=== PATIENT | female | born 1965 | race Caucasian/White ===

== ENCOUNTER 2023-03-30 15:12 | Observation (INO) | payer OTHER, SELFPAY ==
[2023-03-30] VITALS (11 sets, daily range): BP systolic 113–162; BP diastolic 67–85; PULSE 74–102; RESP 12–16; TEMP 36.4–37.3; O2SAT 96–100; BMI 21.2; BMI 21.5
--- NOTE | 2023-03-30 15:43 | EKG12_ITS ---
Test Reason : POSS STROKE Blood Pressure : / mmHG Vent. Rate : 097 BPM Atrial Rate : 097 BPM P-R Int : 160 ms QRS Dur : 080 ms QT Int : 368 ms P-R-T Axes : 072 087 069 degrees QTc Int : 467 ms Normal sinus rhythm Normal ECG Confirmed by KVNG LIU ([id number]), editorial cartoonist JAS GARCIA ([id number]) on 04/02/2023 8:20:36 AM Referred By: Confirmed By:KVNG LIU
--- NOTE | 2023-03-30 15:43 | CT_ITS ---
We are attempting to reach an attending provider to discuss findings. An addendum with communication details will be sent when the communication is complete. EXAM: CT ANGIOGRAPHY HEAD AND NECK WITH INTRAVENOUS CONTRAST CLINICAL INDICATION: Neuro deficit, acute, stroke suspected: ataxia L TECHNIQUE: [place] of [place]/head and neck CT angiography protocol performed with intravenous contrast. This CT exam was performed using one or more of the following dose reduction techniques: automated exposure control, adjustment of the mA and/or kV according to patient size, and/or use of iterative reconstruction technique. MIP reconstructed images were created and reviewed. CONTRAST: IV 100mL [id number] COMPARISON: No relevant prior studies available. FINDINGS: HEAD: RIGHT ANTERIOR CEREBRAL ARTERY: Unremarkable. No significant stenosis at the visualized segments. Anterior communicating artery is present. No aneurysm. RIGHT MIDDLE CEREBRAL ARTERY: Unremarkable. No significant stenosis at the visualized segments. No aneurysm. RIGHT POSTERIOR CEREBRAL ARTERY: Unremarkable. No occlusion or significant stenosis. No aneurysm. RIGHT INTRACRANIAL INTERNAL CAROTID ARTERY: Unremarkable. No significant stenosis. No dissection or occlusion. RIGHT INTRACRANIAL VERTEBRAL ARTERY: Unremarkable. No significant stenosis. No dissection or occlusion. LEFT ANTERIOR CEREBRAL ARTERY: Unremarkable. No significant stenosis at the visualized segments. No aneurysm. LEFT MIDDLE CEREBRAL ARTERY: Unremarkable. No significant stenosis at the visualized segments. No aneurysm. LEFT POSTERIOR CEREBRAL ARTERY: Unremarkable. No occlusion or significant stenosis. No aneurysm. LEFT INTRACRANIAL INTERNAL CAROTID ARTERY: Unremarkable. No significant stenosis. No dissection or occlusion. LEFT INTRACRANIAL VERTEBRAL ARTERY: Unremarkable. No significant stenosis. No dissection or occlusion. BASILAR ARTERY: Unremarkable. No significant stenosis. No aneurysm. OTHER VASCULATURE: No vascular malformation. NECK: RIGHT COMMON CAROTID ARTERY: Unremarkable. No significant stenosis. No dissection or occlusion. RIGHT EXTRACRANIAL INTERNAL CAROTID ARTERY: Unremarkable. No significant stenosis. No dissection or occlusion. RIGHT EXTERNAL CAROTID ARTERY: Unremarkable. No occlusion. RIGHT EXTRACRANIAL VERTEBRAL ARTERY: Unremarkable. No significant stenosis. No dissection or occlusion. LEFT COMMON CAROTID ARTERY: Unremarkable. No significant stenosis. No dissection or occlusion. LEFT EXTRACRANIAL INTERNAL CAROTID ARTERY: Unremarkable. No significant stenosis. No dissection or occlusion. LEFT EXTERNAL CAROTID ARTERY: Unremarkable. No occlusion. LEFT EXTRACRANIAL VERTEBRAL ARTERY: Unremarkable. No significant stenosis. No dissection or occlusion. BRACHIOCEPHALIC AND SUBCLAVIAN ARTERIES: Unremarkable as visualized. No occlusion or significant stenosis. LUNG APICES: Unremarkable as visualized. HEAD and NECK: BONES/JOINTS: Unremarkable. No discrete lytic or blastic abnormalities. SOFT TISSUES: Unremarkable. CAROTID STENOSIS REFERENCE USING NASCET CRITERIA: % ICA stenosis = (1 - narrowest ICA diameter/diameter of distal cervical ICA) x 100. Mild - <50% stenosis. Moderate - 50-69% stenosis. Severe - 70-94% stenosis. Near occlusion - 95-99% stenosis. Occluded - 100% stenosis. CT/STROKE CTA Head AND Neck W/Con IMPRESSION: Negative CTA carotid and CTA brain. Electronically Signed: Khurram Peña MD at 16:22 EDT ,
--- NOTE | 2023-03-30 15:48 | ED.VIS.STROK ---
HPI History of Present Illness Chief Complaint: Dizziness Informant: patient Narrative Narrative: Patient was sitting at lunch 3 hours prior to arrival and started suddenly feeling sensation of dizziness/movement in her head. It was relatively mild but she knows when it started. When she got up to walk, she noticed that she was unable to well, and was off balance feeling like she was on a boat. She has never had this before. She denies any other associated symptoms except for some mild nausea. No headache, tinnitus, changes in hearing, earache, recent URI, or focal numbness/weakness anywhere. 1 week ago she arrived home in [place] from a cruise to [place] and [place], and had no issues while she was there. She flew here 2 days ago from [place]. She has had no symptoms of disequilibrium or ataxia or motion sickness in the last week since she has been home. She states she did notice when she got home that she had a soreness in her left low posterior rib cage that is worse with movement, she does not recall an injury, she has had no rash, and there is no pleuritic symptoms, dyspnea, trouble urinating, or any other painful areas. She is active, healthy, takes no medications except for maintenance Singulair for her relatively stable asthma. [facility] Medical History (Updated 03/30/23 @ 16:[address] Seng Maldonado MD) Asthma Home Medications dextroamphetamine-amphetamine ER 15 mg 24hr capsule,extend release 15 mg PO .QAM 03/30/23 [History Last Taken Unknown] montelukast 10 mg tablet (Singulair) 10 mg PO DAILY 03/30/23 [History Last Taken Unknown] Allergy/AdvReac Type Severity Reaction Status Date / Time No Known Allergies Allergy Verified 03/30/23 15:16 Social History (Updated 03/30/23 @ 15:[address] Seng Maldonado MD) Smoking Status: Never smoker alcohol intake: current alcohol intake frequency: a few times a week substance use type: does not use ROS ROS ED Constitutional Constitutional ED: Denies chills or fever(s) Eyes Eyes: Denies change in vision or diplopia ENT ENT ED: Denies rhinorrhea or sore throat Cardiovascular Cardiovascular: Denies chest pain or palpitations Respiratory/Chest Respiratory/Chest: Denies cough or dyspnea Gastrointestinal Gastrointestinal: Reports nausea; Denies abdominal pain, diarrhea or vomiting Genitourinary Genitourinary ED: Denies dysuria or hematuria Musculoskeletal Musculoskeletal: Denies back pain or neck pain Integumentary Denies abscess or rash Neurologic Neurologic: Reports as per HPI, abnormal gait and disequilibrium; Denies headache(s), paresthesias or weakness Psychiatric Psychiatric: Denies anxiety or suicidal thoughts EXAM Physical Exam Const Vital Signs: 03/30/23 15:14 03/30/23 15:23 03/30/23 15:59 Temperature 98.0 F Temperature Source Temporal Pulse Rate 94 Respiratory Rate 16 Respiratory Effort Normal Respiratory Pattern Normal Blood Pressure 132/77 H Blood Pressure Mean 95 Pulse Ox 98 Oxygen Delivery Method Room Air Room Air 03/30/23 16:01 03/30/23 15:43 03/30/23 16:13 Temperature 98.2 F 98.4 F 98.2 F Temperature Source Oral Oral Oral Pulse Rate 100 99 102 H Respiratory Rate 16 12 13 Respiratory Effort Respiratory Pattern Blood Pressure 159/82 H 113/85 H 113/85 H Blood Pressure Mean 107 94 94 Pulse Ox 98 97 100 Oxygen Delivery Method Room Air Room Air Room Air 03/30/23 16:26 Temperature 98.4 F Temperature Source Oral Pulse Rate 101 H Respiratory Rate 16 Respiratory Effort Respiratory Pattern Blood Pressure 131/67 H Blood Pressure Mean 88 Pulse Ox 99 Oxygen Delivery Method Room Air Positive well nourished and well developed General Appearance ED: well developed and NAD HEENT Reports TM's clear and moist mucous membranes normocephalic and atraumatic Tympanic Membrane ED: Yes TM's clear Eyes PERRL and EOMs intact bilaterally Neck full ROM, no lymphadenopathy and supple Resp normal respiratory effort and clear to auscultation bilaterally Cardio regular rate, regular rhythm and no murmurs GI non-tender and non-distended Auscultation: normoactive bowel sounds Palpation: soft Back/Spine no CVA tenderness Back/Spine Narrative: Tender left lower posterior lateral ribs without rash, crepitance, or CVA tenderness General Back: other FROM Extremity normal to inspection General Extremety ED: Negative for edema, pulses abnormal or tenderness General Extremity: Negative for edema or pulses abnormal Neuro oriented x3, CN's II-XII intact bilaterally and no sensory deficits noted Neuro Narrative: Horizontal nystagmus bilaterally, maybe worse to the right, no vertical or rotatory nystagmus. Ataxic with left upper and left lower extremities, not with the right. [place] bilaterally similarly reproduces disequilibrium without nystagmus. Normal speech and comprehension. Sensorium / Orientation: awake and alert Motor Exam: strength 5/5 throughout Psych mental status grossly normal Skin no rashes or lesions noted and no wounds NIHSS NIHSS Initial: 1a Level of Consciousness: 0 1b LOC Questions (Score 2 if aphasic/stupor): 0 1c LOC Commands (Only score 1st attempt): 0 2 Best Gaze (If aphasic, use reflexive mvmts.): 0 3 Visual: 0 4 Facial Palsy: 0 5 Motor Arm Right (UN = amputation/fusion): 0 5 Motor Arm Left: 0 6 Motor Leg Right: 0 6 Motor Leg Left: 0 7 Limb ataxia (Only + if out of proportion): 2 8 Sensory (Aphasia/stupor=0 or 1, coma=2): 0 9 Best Language: 0 10 Dysarthria (mute, coma=2, intubated=UN): 0 11 Extinction and Inattention (only scored if +): 0 Total Score: 2 MDM MDM MDM Narrative Medical decision making narrative: After my exam, upon determining the patient has true ataxia in her left upper and lower extremities, I am concerned about central etiologies, and a stroke alert was immediately called. Discussed throughout at length with patient and stroke neurologist who evaluated the patient in real-time on telemedicine, agrees this is central until proven otherwise and does not recommend thrombolytics given nondisabling deficits and she is at the tail end of the 4-hour window. Patient is in agreement I am in agreement as well. Patient amenable for admission for continued work-up. Lab Data Attestation: I reviewed the patient's lab results. Labs: Laboratory Results - last 24 hr 03/30/23 16:00 WBC 5.9 RBC 4.92 Hgb 14.2 Hct 44.1 MCV 89.6 MCH 28.9 MCHC 32.2 RDW Std Deviation 40.6 RDW Coeff of [place]et[place] 12.2 Plt Count 239 MPV 11.1 Immature Gran % (Auto) 0.200 Neut % (Auto) 52.0 Lymph % (Auto) 28.0 [place] % (Auto) 11.1 H Eos % (Auto) 7.8 H Baso % (Auto) 0.9 Absolute Neuts (auto) 3.1 Absolute Lymphs (auto) 1.64 Nucleated RBC % 0 PT 12.7 INR 1.0 APTT 32.1 Sodium 139 Potassium 3.7 Chloride 107 Carbon Dioxide 29.0 Anion Gap 3 L BUN 17 Creatinine 0.93 Estim Creat Clear Calc 68.52 Est GFR (MDRD) Af Amer 80 Est GFR (MDRD) Non-Af 66 BUN/Creatinine Ratio 18.2 Glucose 98 Calcium 8.9 Troponin I High Sens 4 Radiography Diagnostic Testing: Clinical Impression(s) from Imaging Studies Head/Neck CTA 03/30/23 15:43 IMPRESSION: Negative CTA carotid and CTA brain. Electronically Signed: Khurram Peña MD at 16:22 EDT , ADDENDUM: 03/30/23 1631 IMPRESSION: Negative CTA carotid and CTA brain. N.B. : The above Results were Read Back by Khurram Peña MD to Seng Maldonado MD, and understanding confirmed on 03/30/2023 16:24:08 (ET). Electronically Signed: Khurram Peña MD at 16:22 EDT , Brain CT 03/30/23 15:50 IMPRESSION: 1. No acute intracranial abnormality. 2. Aspects score 10. 3. Ethmoid, frontal and sphenoid sinusitis. Electronically Signed: Khurram Peña MD at 16:11 EDT , ADDENDUM: 03/30/23 1621 IMPRESSION: 1. No acute intracranial abnormality. 2. Aspects score 10. 3. Ethmoid, frontal and sphenoid sinusitis. N.B. : The above Results were Read Back by Khurram Peña MD to Seng Maldonado MD, and understanding confirmed on 03/30/2023 16:14:13 (ET). Electronically Signed: Khurram Peña MD at 16:11 EDT , Rhythm Strip Rhythm Strip: Sinus Rhythm Rate: 95 Ectopy: None EKG Initial EKG: Attestation: I personally reviewed and interpreted this EKG as follows: Interpretation: Sinus Rhythm and No Acute Injury Pattern Management Discussion w/another healthcare provider: Hospitalist, Winding Lathe Operator (Stroke neurology Dr. Jack) and Radiologist Stroke Documentation Questions Stroke Team Activated: Yes Was Patient considered for Endovascular Intervention?: No-CTA negative, determined not to be an endovascular candidate IV Thrombolytic Administered: No (nondisabling deficits) Critical Care Time Critical Care Time: Yes Critical care time (excluding procedures): 30-74 minutes (33 min), Including time spent:, Discussing w/Patient &/or Family/Senior Product Development Scientist, Discussing w/Consultants, Arranging Admission or Transfer and Performing Direct Patient Care at Bedside Discharge Plan Triage Chief Complaint: Dizziness ED Provider: Seng Maldonado Dx/Rx/DC Orders Clinical Impression: Acute cerebellar ataxia Prescriptions: No Action montelukast [Singulair] 10 mg tablet 10 mg PO DAILY dextroamphetamine-amphetamine 15 mg capsule,extended release 24hr 15 mg PO .QAM Patient Comments: TAKE ONE CAPSULE BY MOUTH EVERY MORNING Primary Care Provider: SIGIFREDO PEPPER Referrals: [facility] Doctor,Out of [Non-Staff] - Disposition Disposition: Acute Care Hospital [facility]
--- NOTE | 2023-03-30 15:50 | CT_ITS ---
We are attempting to reach an attending provider to discuss findings. An addendum with communication details will be sent when the communication is complete. EXAM: CT HEAD WITHOUT INTRAVENOUS CONTRAST CLINICAL INDICATION: Neuro deficit, acute, stroke suspected: ataxia L TECHNIQUE: Multiple axial images were obtained of the head without intravenous contrast. This CT exam was performed using one or more of the following dose reduction techniques: automated exposure control, adjustment of the mA and/or kV according to patient size, and/or use of iterative reconstruction technique. COMPARISON: No relevant prior studies available. FINDINGS: BRAIN AND EXTRA-AXIAL SPACES: Unremarkable. No intra- or extra-axial hemorrhage. No evidence of acute infarct. No intracranial mass or mass effect. There is preservation of the lou/white matter interface. Posterior fossa structures are unremarkable. Ventricles are appropriate for age. No hydrocephalus. Basal cisterns are patent. BONES/JOINTS: Unremarkable. No discrete lytic or blastic abnormalities. SINUSES: There is total opacification of multiple ethmoid air cells. There is also mucosal thickening of the frontal sinuses and sphenoid sinus. MASTOID AIR CELLS: Unremarkable. Clear. ORBITS: Visualized globes, extraocular muscles, optic nerves and retrobulbar fat appear unremarkable. CT/STROKE Brain/Head without Cont IMPRESSION: 1. No acute intracranial abnormality. 2. Aspects score 10. 3. Ethmoid, frontal and sphenoid sinusitis. Electronically Signed: Khurram Peña MD at 16:11 EDT ,
[2023-03-30 16:15] LABS: Absolute Lymphocyte Count 1.64 X10^3/uL (0.83-4.51); Absolute Neutrophil Count 3.1 X10^3/uL (2.0-7.7); Basophil# 0.05 X10^3/uL; Basophil% 0.9 % (0-1); Eosinophil# 0.46 X10^3/uL; Eosinophils% 7.8 % (0-5); Hematocrit 44.1 % (37-47); Hemoglobin 14.2 g/dL (12.0-15.0); Lymphocyte # 1.64 X10^3/ul (0.83-4.51); Mean Corp Hgb Conc 32.2 g/dL (32-36); Mean Corpuscular Hgb 28.9 pg (27.0-32.0); Mean Corpuscular Volume 89.6 fL (81-99); Mean Platelet Vol. 11.1 fl (6.2-12.0); Monocyte# 0.65 X10^3/uL; Monocyte% 11.1 % (0-10); NRBC Flagged by Analyzer 0 % (0-5); Neutrophil # 3.05 X10^3/uL (2.7-7.7); Platelet Count 239 K/mm3 (150-450); RBC Distribution Width CV 12.2 % (11.6-14.6); RBC Distribution Width SD 40.6 fl (35.1-43.9); Red Blood Count 4.92 M/mm3 (4.2-5.4); White Blood Count 5.9 K/mm3 (4.4-11.0)
--- NOTE | 2023-03-30 16:15 | NURSING ---
1545: Stroke alert called, IV started, labs drawn, placed on monitor, put on gown 1550: Pt out of ED to CT, Telestroke called 1605: Pt returned from CT, Blood sugar obtained, telestroke called again 1616: on telestroke called in with computer.
[2023-03-30 16:24] LABS: Prothrombin Time (Protime)PT. 12.7 SECONDS (11.7-14.9)
[2023-03-30 16:25] LABS: Partial Thromboplast Time 32.1 Seconds (24.1-36.2)
[2023-03-30 16:32] LABS: Anion Gap 3 (5-15); BUN 17 mg/dL (7-18); BUN/Creat Ratio 18.2 RATIO (10-20); Calcium,Total 8.9 mg/dL (8.5-10.1); Chloride 107 mmol/L (98-107); Creatinine, Serum 0.93 mg/dL (0.55-1.02); EST Glomerular Filtration Rate 66 mL/min (>60); Est Glom Filt Rate - Afr Amer 80 mL/min (>60); Estimated Creatinine Clearance 68.52 ml/min; Glucose 98 mg/dL (74-106); Potassium 3.7 mmol/L (3.5-5.1); Sodium Level 139 mmol/L (136-145); Troponin-I HS 4 pg/mL (3.0-54.0)
--- NOTE | 2023-03-30 16:49 | PCM.HP.STD ---
HPI - General General Date of Admission: 03/30/23 Date of Service: 03/30/23 Chief Complaint: Ataxia HPI Narrative BRUNA GUERIN is a 57-year-old female with history significant for asthma and ADHD who presented to [facility] ED on 03/30/2023 with dizziness. Patient seen at bedside, mother present. Patient sitting up comfortably in bed, conversing normally, in no acute distress. Patient lives in [place] and was here visiting her parents this weekend. She flew in on and is planning to fly home to [place] on this coming Saturday. States she is very healthy at baseline and has never had anything like this happen to her before. States she was sitting at lunch today and suddenly started to feel a sensation of dizziness and room spinning. She states it was relatively mild but when she got up to walk, she felt very off balance like she was on a boat. She had some mild nausea associated with this but otherwise had no other symptoms. She denies any recent infections. She denies any headaches, tinnitus, changes in hearing. Denies any focal numbness or weakness anywhere else in the body. Labs on admission were benign. CT brain and CTA head neck in the ED were nonacute. Chest x-ray was nonacute. [facility] Medical History (Updated 03/30/23 @ 19:[address] Zaid Shelton DO) Asthma Home Medications dextroamphetamine-amphetamine ER 15 mg 24hr capsule,extend release 15 mg PO .QAM 03/30/23 [History Last Taken 03/30/23] ibuprofen 200 mg tablet (Advil) 400 mg PO Q8H PRN pain 03/30/23 [History Last Taken 03/30/23] montelukast 10 mg tablet (Singulair) 10 mg PO DAILY 03/30/23 [History Last Taken 03/29/23] Allergy/AdvReac Type Severity Reaction Status Date / Time No Known Allergies Allergy Verified 03/30/23 15:16 Social History (Updated 03/30/23 @ 15:[address] Seng Maldonado MD) Smoking Status: Never smoker alcohol intake: current alcohol intake frequency: a few times a week substance use type: does not use ROS Constitutional Constitutional: Denies chills, fatigue, fever(s) or weakness Eyes Eyes: Denies blurry vision or change in vision ENT HEENT: Reports other; Denies ear pain, headache(s), hearing loss or sore throat Cardiovascular Cardiovascular: Denies chest pain or lightheadedness Respiratory/Chest Respiratory/Chest: Denies cough Gastrointestinal Gastrointestinal: Denies abdominal pain Genitourinary Genitourinary: Denies dysuria Neurologic Neurologic: Reports abnormal gait, disequilibrium and dizziness; Denies focal weakness, headache(s), numbness, syncope or tingling Vital Signs Vital Signs Vital Signs: 03/30/23 15:14 03/30/23 15:23 03/30/23 15:59 Temperature 98.0 F Temperature Source Temporal Pulse Rate 94 Respiratory Rate 16 Respiratory Effort Normal Respiratory Pattern Normal Blood Pressure 132/77 H Blood Pressure Mean 95 Pulse Ox 98 Oxygen Delivery Method Room Air Room Air 03/30/23 16:01 03/30/23 15:43 03/30/23 16:13 Temperature 98.2 F 98.4 F 98.2 F Temperature Source Oral Oral Oral Pulse Rate 100 99 102 H Respiratory Rate 16 12 13 Respiratory Effort Respiratory Pattern Blood Pressure 159/82 H 113/85 H 113/85 H Blood Pressure Mean 107 94 94 Pulse Ox 98 97 100 Oxygen Delivery Method Room Air Room Air Room Air 03/30/23 16:26 Temperature 98.4 F Temperature Source Oral Pulse Rate 101 H Respiratory Rate 16 Respiratory Effort Respiratory Pattern Blood Pressure 131/67 H Blood Pressure Mean 88 Pulse Ox 99 Oxygen Delivery Method Room Air Weight Weight: 63.503 kg Body Mass Index (BMI) 21.2 Physical Exam Const alert, oriented x3, no apparent distress, average body habitus, healthy appearing and well nourished Constitutional Narrative: Pleasant female sitting comfortably in bed, conversing normally, no acute distress. General Appearance: cooperative, comfortable, well kempt and well developed HEENT normocephalic, head/scalp atraumatic, hearing grossly normal bilaterally, nasal mucous membranes and turbinates normal and moist oral mucous membranes Eyes PERRL, EOMs intact bilaterally and conjunctivae normal Neck full ROM, no lymphadenopathy and supple Lymph Lymphatic: no lymphadenopathy noted Chest inspection of chest normal Resp normal respiratory effort, normal air movement, no use of accessory muscles and clear to auscultation bilaterally Cardio regular rate, regular rhythm, no murmurs and peripheral pulses 2+ throughout GI normal to inspection, nondistended, normoactive bowel sounds, soft to palpation, non-tender and non-distended Back/Spine normal ROM Extremity normal to inspection, full ROM and no pedal edema Skin no rashes or lesions noted Neuro moves all extremities and no focal motor deficits Neuro Narrative: Basic neuro exam completed while patient was in bed, no acute findings noted. Psych mental status grossly normal Results Lab / Micro Data 03/30/23 16:00 03/30/23 16:00 Labs: Laboratory Results - last 24 hr 03/30/23 16:00: WBC 5.9, RBC 4.92, Hgb 14.2, Hct 44.1, MCV 89.6, MCH 28.9, MCHC 32.2, RDW Std Deviation 40.6, RDW Coeff of [place] 12.2, Plt Count 239, MPV 11.1, Immature Gran % (Auto) 0.200, Neut % (Auto) 52.0, Lymph % (Auto) 28.0, [place] % (Auto) 11.1 H, Eos % (Auto) 7.8 H, Baso % (Auto) 0.9, Absolute Neuts (auto) 3.1, Absolute Lymphs (auto) 1.64, Nucleated RBC % 0, PT 12.7, INR 1.0, APTT 32.1, Sodium 139, Potassium 3.7, Chloride 107, Carbon Dioxide 29.0, Anion Gap 3 L, BUN 17, Creatinine 0.93, Estim Creat Clear Calc 68.52, Est GFR (MDRD) Af Amer 80, Est GFR (MDRD) Non-Af 66, BUN/Creatinine Ratio 18.2, Glucose 98, Calcium 8.9, Troponin I High Sens 4 Rhythm Strip Rhythm Strip: Sinus Rhythm Rate: 95 Ectopy: None Radiology Impression Head/Neck CTA 03/30/23 15:43 IMPRESSION: Negative CTA carotid and CTA brain. Electronically Signed: Khurram Peña MD at 16:22 EDT , ADDENDUM: 03/30/23 1631 IMPRESSION: Negative CTA carotid and CTA brain. N.B. : The above Results were Read Back by Khurram Peña MD to Seng Maldonado MD, and understanding confirmed on 03/30/2023 16:24:08 (ET). Electronically Signed: Khurram Peña MD at 16:22 EDT , Brain CT 03/30/23 15:50 IMPRESSION: 1. No acute intracranial abnormality. 2. Aspects score 10. 3. Ethmoid, frontal and sphenoid sinusitis. Electronically Signed: Khurram Peña MD at 16:11 EDT , ADDENDUM: 03/30/23 1621 IMPRESSION: 1. No acute intracranial abnormality. 2. Aspects score 10. 3. Ethmoid, frontal and sphenoid sinusitis. N.B. : The above Results were Read Back by Khurram Peña MD to Seng Maldonado MD, and understanding confirmed on 03/30/2023 16:14:13 (ET). Electronically Signed: Khurram Peña MD at 16:11 EDT , Assessment & Plan Assessment/Plan (1) Dizziness: PLAN: Plan Patient is a 57-year-old female with history significant for asthma and ADHD who presented to [facility] ED on 03/30/2023 with dizziness. 1. Dizziness Unclear etiology at this time. Seems less likely a CVA given normal CT imaging of head, and that patient stated that symptoms seem to be improving during her time in the ED without any intervention. Seems more likely vestibular in nature like BPPV. Less likely infectious related as she currently has no systemic symptoms and reports no recent infectious symptoms. Labs and imaging in the ED as noted above in the HPI. -We will complete CVA work-up with MRI brain and echo. Lipid panel, A1c and TSH ordered. PT/OT/case management also consulted. 2. Asthma ? Continue home montelukast. 3. ADHD ? Continue home Adderall. DVT prophylaxis: Ambulation CODE STATUS: Full code, verified Expected disposition: Home, 1 to 2 days Total clinical time spent by myself addressing the patient's medical issues, reviewing all the data, and collaborating with patient's care team: 55 minutes. Charges/Coding Visit Charges Inpatient E&M: 60862 Init Hosp L2
[2023-03-30 16:51] LABS: Bedside Glucose 82 mg/dL (74-106)
--- NOTE | 2023-03-30 16:54 | NURSING ---
Hospitalist in to see pt.
--- NOTE | 2023-03-30 17:20 | RAD_ITS ---
EXAM: XR CHEST, 1 VIEW CLINICAL INDICATION: Neuro deficit, acute, stroke suspected TECHNIQUE: Frontal view of the chest. COMPARISON: No relevant prior studies available. FINDINGS: LUNGS AND PLEURAL SPACES: Unremarkable. No consolidation or edema. No pneumothorax. No effusion. HEART: Unremarkable. Cardiac silhouette not enlarged. MEDIASTINUM: Central airways and mediastinal contour are unremarkable. BONES/JOINTS: Unremarkable. SOFT TISSUES: Unremarkable. RAD/Chest 1 View IMPRESSION: No radiographic evidence of acute cardiopulmonary disease. Electronically Signed: Khurram Peña MD at 18:00 EDT ,
[2023-03-30 18:44] LABS: Color, Urine Straw (Yellow); Glucose, Dipstick Normal (Normal); Ketone-Dipstick Negative (Negative); Leukocyte Esterase-Dipstick Negative /ul (Negative); Nitrite-Dipstick Negative (Negative); Occult Blood-Urine Negative /ul (Negative); Protein-Dipstick Negative (Negative); Urine Bilirubin Dipstick Negative (Negative); Urine Clarity Clear (Clear); Urine Urobilinogen Normal (Normal)
[2023-03-30 19:24] LABS: Amphetamine Urine VISTA NEGATIVE (<1000 ng/mL); Barbiturate Urine VISTA NEGATIVE (< 200 ng/mL); Benzodiazepine Urine VISTA NEGATIVE (< 200 ng/mL); Cocaine Urine VISTA NEGATIVE (< 300 ng/mL); Ecstacy Urine VISTA NEGATIVE (< 500 ng/mL); Methadone Urine VISTA NEGATIVE (< 300 ng/mL); PCP Urine VISTA NEGATIVE (< 25 ng/mL); THC Urine VISTA NEGATIVE (< 50 ng/mL); Vista UDS pH Range 8
[2023-03-30 20:07] LABS: Cholesterol 224 mg/dL (200); High Density Lipoprotein 73 mg/dL; Triglycerides 155 mg/dL; Very Low Density Lipoprotein 31 mg/dL (5-40)
[2023-03-31 03:24] VITALS: BP 108/73; PULSE 75; RESP 15; TEMP 36.9; O2SAT 97
[2023-03-31 07:12] VITALS: BP 98/62; PULSE 69; RESP 15; TEMP 36.2; O2SAT 97
--- NOTE | 2023-03-31 07:27 | MRI_ITS ---
STUDY: MRI BRAIN WITH AND WITHOUT CONTRAST REASON FOR EXAM: Female, 57 years old. Ataxia, unsteady gait, possible stroke TECHNIQUE: Standardized multiplanar fat and water weighted pulse sequences were obtained. IV CLARISCAN 13 ml was administered for the contrast portion of the examination. COMPARISON: CT March 30, 2023 FINDINGS: Normal size of the ventricles and extra-axial spaces for the patient''s age. Normal white matter tracts of the supratentorial brain. There is no evidence for recent intracranial ischemia or other cause of cytotoxic edema on diffusion weighted imaging (DWI). Normal T2* images of the brain without demonstrated susceptibility artifact. There is no demonstrated hemosiderin stain. Normal bilateral basal ganglia. Normal thalami. There is no extra-axial fluid accumulation. Normal flow voids within the major intracranial circulation suggesting patency by spin echo criteria. Normal venous enhancement. There is no enhancing intra-axial or extra-axial abnormality. Normal sella turcica, pituitary gland, infundibular stalk, optic chiasm and hypothalamus. Normal tectal plate and pineal gland. Normal midbrain, alejandra and medulla. Normal cerebellum. Normal basal cisterns. Normal bilateral temporal bones. Normal bilateral internal auditory canals. No demonstrated orbital abnormality, within the constraints of a routine brain study. There is moderate mucosal thickening of the visualized paranasal sinuses. Normal calvarium and skull base. Normal visualized soft tissue structures. Normal visualized upper cervical spine. MRI/Brain W/WO Contrast IMPRESSION: Normal unenhanced and enhanced MRI of the brain.. Sinusitis. Electronically Signed: Seng Del Cid MD at 10:52 EDT ,
[2023-03-31] MEDS: LORazepam 2 MG/ML Syringe 0.5 MG IV (07:51)
[2023-03-31 09:19] LABS: Hemoglobin A1c 5.1 % (3.8-5.6)
[2023-03-31] MEDS: Montelukast 10 MG Tablet PO (10:35)
--- NOTE | 2023-03-31 13:18 | PCM.DC ---
Discharge Instructions Diet Discharge Diet: No restrictions Activity Discharge Activity: Return to Normal Activity Dressing / Incision Call your doctor if you observe: Fever of 101 or Higher, Shortness of breath, Dizziness, Fainting spells, Swelling in the ankles, Chest pain and Increased palpitations (irregular heartbeat) Follow Up Care Test Results: Test results from this visit will be discussed in further detail at your follow-up appointment, if applicable. Discharge Plan Admission Admit Date/Time: 03/30/23 17:04 Attending Provider: Neo Berrios Primary Care Provider: SIGIFREDO PEPPER Consulting Providers: Zaid Shelton Instructions Additional Instructions / Restrictions: If your lower extremity ataxia gets worse recommend coming back to the hospital for completion of neurological work-up otherwise I would continue with plans to return to [place] tomorrow afternoon and follow-up with your PCP as an outpatient with outpatient neurology as well. I do recommend completion of stroke work-up with obtaining an echo. Discharge Orders/Prescriptions Prescriptions: New aspirin 81 mg capsule 81 mg PO DAILY Qty: 30 0RF atorvastatin [Lipitor] 40 mg tablet 40 mg PO QHS Qty: 30 0RF Continued montelukast [Singulair] 10 mg tablet 10 mg PO DAILY dextroamphetamine-amphetamine 15 mg capsule,extended release 24hr 15 mg PO .QAM Patient Comments: TAKE ONE CAPSULE BY MOUTH EVERY MORNING ibuprofen [Advil] 200 mg tablet 400 mg PO Q8H PRN (Reason: pain) Referrals / Follow Up: SIGIFREDO PEPPER [[facility]] [facility] Doctor,Out of [Non-Staff] - Disposition Disposition (needs filled in before D/C Order can be placed): Home, Self Care
--- NOTE | 2023-03-31 15:24 | PCM.DC.SUM ---
Providers Date of Admission: 03/30/23 Primary Care Physician: SIGIFREDO PEPPER Reason For Visit: ATAXIA Diagnosis Discharge Diagnosis (1) Dizziness: Status: Acute Code(s): R42 - Dizziness and giddiness Medications at Discharge Home Medications dextroamphetamine-amphetamine ER 15 mg 24hr capsule,extend release 15 mg PO .QAM 03/30/23 ibuprofen 200 mg tablet (Advil) 400 mg PO Q8H PRN pain 03/30/23 montelukast 10 mg tablet (Singulair) 10 mg PO DAILY 03/30/23 aspirin 81 mg capsule 81 mg PO DAILY #30 caps 03/31/23 atorvastatin 40 mg tablet (Lipitor) 40 mg PO QHS #30 tabs 03/31/23 Hospital Course Operations None Procedures None Summary of Care Provided Minutes Spent on Discharge: 42 Hospital Course: Per HPI: BRUNA GUERIN is a 57-year-old female with history significant for asthma and ADHD who presented to [facility] ED on 03/30/2023 with dizziness. Patient seen at bedside, mother present. Patient sitting up comfortably in bed, conversing normally, in no acute distress. Patient lives in [place] and was here visiting her parents this weekend. She flew in on and is planning to fly home to [place] on this coming Saturday. States she is very healthy at baseline and has never had anything like this happen to her before. States she was sitting at lunch today and suddenly started to feel a sensation of dizziness and room spinning. She states it was relatively mild but when she got up to walk, she felt very off balance like she was on a boat. She had some mild nausea associated with this but otherwise had no other symptoms. She denies any recent infections. She denies any headaches, tinnitus, changes in hearing. Denies any focal numbness or weakness anywhere else in the body. Labs on admission were benign. CT brain and CTA head neck in the ED were nonacute. Chest x-ray was nonacute. Hospital Course: 1. CVA rule out?57-year-old female presents to the hospital with dizziness and ataxia. During oh issues stroke evaluation she was given an NIH of 0. On my exam today her left heel ballard while not positive was hesitant and much slower than when she used her right foot. Her left [id number]-[id number]-[id number] was much slower than her right though not distinctly positive. She did require contact-guard for ambulation and felt that her feet just went under her. MRI was obtained and was read as normal. Unfortunate had to have extensive discussions with her because she is from [place] and has a flight back home tomorrow. I discussed the possibility that she could have a lesion that she has not seen on the MRI yet versus another neurological disorder. She would prefer to go home and as she is only requiring contact-guard I discussed with her the ability to send her today on aspirin and Lipitor. I discussed with her extensively reasons why to return to the hospital or go to a tertiary care center. She expressed understanding of this discussion and would like to be discharged today if possible. I recommend that she follow-up with her PCP sometime next week in [place] and obtain an outpatient echo as well as a referral to neurology versus a repeat MRI. Physical Exam Narrative General: Alert, Oriented x3, Cooperative, No apparent distress HEENT: Atraumatic, PERRLA, EOMI, Normocephalic Oral: Moist Mucosa Neck: Supple, No JVD Lungs: Clear to auscultation, Normal air movement, No rhonchi, No wheeze, No rales Cardiovascular: Regular rate, Regular Rhythm, Normal S1, Normal S2, No murmurs Abdomen: Soft, Non Tender, Non-Distended, No Hepato-splenomegaly Extremities: No edema, Capillary Refill Less than 3 Seconds Skin: No rashes, No breakdown Musculoskeletal: No Tenderness to Palpation of Joints or Extremities Neurological: Cranial nerves II-XII grossly intact, NIH 0, [id number]-[id number] on the left as well as heel ballard test on the left much slower than the right side though not grossly positive. Motor Exam 5/5 strength throughout, Sensory exam intact to light touch and pain Psych/Mental Status: Normal Affect, Appropriate Weight / BMI Weight Weight: 140 lb 10.354 oz Body Mass Index (BMI) 21.5 ABG / Lab / Microbiology Data 03/30/23 16:00 03/30/23 16:00 Laboratory: Laboratory Results - last 24 hr 03/30/23 16:00: WBC 5.9, RBC 4.92, Hgb 14.2, Hct 44.1, MCV 89.6, MCH 28.9, MCHC 32.2, RDW Std Deviation 40.6, RDW Coeff of [place] 12.2, Plt Count 239, MPV 11.1, Immature Gran % (Auto) 0.200, Neut % (Auto) 52.0, Lymph % (Auto) 28.0, [place] % (Auto) 11.1 H, Eos % (Auto) 7.8 H, Baso % (Auto) 0.9, Absolute Neuts (auto) 3.1, Absolute Lymphs (auto) 1.64, Nucleated RBC % 0, PT 12.7, INR 1.0, APTT 32.1, Sodium 139, Potassium 3.7, Chloride 107, Carbon Dioxide 29.0, Anion Gap 3 L, BUN 17, Creatinine 0.93, Estim Creat Clear Calc 68.52, Est GFR (MDRD) Af Amer 80, Est GFR (MDRD) Non-Af 66, BUN/Creatinine Ratio 18.2, Glucose 98, Hemoglobin A1c 5.1, Calcium 8.9, Troponin I High Sens 4, Triglycerides 155, Cholesterol 224 H, LDL Cholesterol 120, VLDL Cholesterol 31, HDL Cholesterol 73, TSH 2.30 03/30/23 16:05: POC Glucose 82 03/30/23 18:23: Urine Color Straw, Urine Clarity Clear, Urine pH 8.0, Ur Specific [place] 1.010, Urine Protein Negative, Urine Glucose (UA) Normal, Urine Ketones Negative, Urine Occult Blood Negative, Urine Nitrite Negative, Urine Bilirubin Negative, Urine Urobilinogen Normal, Ur Leukocyte Esterase Negative, Urine Opiates Screen NEGATIVE, Urine Methadone Screen NEGATIVE, Ur Barbiturates Screen NEGATIVE, Ur Phencyclidine Scrn NEGATIVE, Ur Amphetamines Screen NEGATIVE, MDMA (Ecstasy) Screen NEGATIVE, U Benzodiazepines Scrn NEGATIVE, Urine Cocaine Screen NEGATIVE, U Cannabinoids Screen NEGATIVE, Ur Drug Screen Comment Radiography Diagnostic Testing: Radiology Impression Head/Neck CTA 03/30/23 15:43 IMPRESSION: Negative CTA carotid and CTA brain. Electronically Signed: Khurram Peña MD at 16:22 EDT , ADDENDUM: 03/30/23 1631 IMPRESSION: Negative CTA carotid and CTA brain. N.B. : The above Results were Read Back by Khurram Peña MD to Seng Maldonado MD, and understanding confirmed on 03/30/2023 16:24:08 (ET). Electronically Signed: Khurram Peña MD at 16:22 EDT , Brain CT 03/30/23 15:50 IMPRESSION: 1. No acute intracranial abnormality. 2. Aspects score 10. 3. Ethmoid, frontal and sphenoid sinusitis. Electronically Signed: Khurram Peña MD at 16:11 EDT , ADDENDUM: 03/30/23 1621 IMPRESSION: 1. No acute intracranial abnormality. 2. Aspects score 10. 3. Ethmoid, frontal and sphenoid sinusitis. N.B. : The above Results were Read Back by Khurram Peña MD to Seng Maldonado MD, and understanding confirmed on 03/30/2023 16:14:13 (ET). Electronically Signed: Khurram Peña MD at 16:11 EDT , Chest X-Ray 03/30/23 17:20 IMPRESSION: No radiographic evidence of acute cardiopulmonary disease. Electronically Signed: hKurram Peña MD at 18:00 EDT , Brain MRI 03/31/23 07:27 IMPRESSION: Normal unenhanced and enhanced MRI of the brain.. Sinusitis. Electronically Signed: Seng Del Cid MD at 10:52 EDT , D/C Instructions Discharge Diet: No restrictions Call your doctor if you observe: Fever of 101 or Higher, Shortness of breath, Dizziness, Fainting spells, Swelling in the ankles, Chest pain and Increased palpitations (irregular heartbeat) Meaningful Use Info Meaningful Use Diagnoses (Choose all that apply): None applicable Discharge Plan Admission Admit Date/Time: 03/30/23 17:04 Attending Provider: Neo Berrios Primary Care Provider: SIGIFREDO PEPPER Consulting Providers: Zaid Shelton Instructions Additional Instructions / Restrictions: If your lower extremity ataxia gets worse recommend coming back to the hospital for completion of neurological work-up otherwise I would continue with plans to return to [place] tomorrow afternoon and follow-up with your PCP as an outpatient with outpatient neurology as well. I do recommend completion of stroke work-up with obtaining an echo. Discharge Orders/Prescriptions Prescriptions: New aspirin 81 mg capsule 81 mg PO DAILY Qty: 30 0RF atorvastatin [Lipitor] 40 mg tablet 40 mg PO QHS Qty: 30 0RF Continued montelukast [Singulair] 10 mg tablet 10 mg PO DAILY dextroamphetamine-amphetamine 15 mg capsule,extended release 24hr 15 mg PO .QAM Patient Comments: TAKE ONE CAPSULE BY MOUTH EVERY MORNING ibuprofen [Advil] 200 mg tablet 400 mg PO Q8H PRN (Reason: pain) Referrals / Follow Up: SIGIFREDO PEPPER [[facility]] [facility] Doctor,Out of [Non-Staff] - Disposition Disposition (needs filled in before D/C Order can be placed): Home, Self Care Charges/Coding Visit Charges Inpatient E&M: 30677 Disch Hosp >30min
== END 2023-03-31 13:20 | disposition home or self-care (01) ==
LOC: ED 17:20 → PCU 17:38
PROVIDERS: Admitting Provider Hospitalist; Emergency Provider Emergency Medicine; Visit Provider Family Medicine
DX: R42 Dizziness and giddiness (principal); J45.909 Unspecified asthma, uncomplicated; R27.0 Ataxia, unspecified; F90.9 Attention-deficit hyperactivity disorder, unspecified type; Z79.899 Other long term (current) drug therapy
CPT/HCPCS: 70450; 70496; 70498; 70553; 71045; 80048; 80061; 80307; 81002; 82962; 83036; 84443; 84484; 85025; 85610; 85730; 93005; 96374; 97162; 97165; 99221; 99285; A9575; Q9967; G0378